=== PATIENT | female | born 1935 | race Caucasian/White ===

== ENCOUNTER 2019-08-24 18:32 | Emergency (ER) | payer OTHER ==
[~2019-08-24] VITALS: Ht 142.2 cm; Wt 57.6 kg
[~2019-08-24 18:32] MED LIST: ANTIVERT25 M1 PO; JANUVIA100 MG PO; NEURONTIN300 MG PO; PRILOSEC20 MG PO; PROCARDIA90 MG/BLIS PO
[2019-08-24] MEDS ORDERED: ENALAPRIL MALEAT5 MG (18:43)
[2019-08-24] MEDS ORDERED: ECOTRIN81 MG (18:44)
== END 2019-08-25 00:39 | disposition home or self-care (01) ==
LOC: ER 18:32
DX: N39.0 Urinary tract infection, site not specified (principal); R10.32 Left lower quadrant pain

== ENCOUNTER 2021-04-03 04:31 | Emergency (ER) | payer OTHER ==
[~2021-04-03] VITALS: Ht 129.5 cm; Wt 55.8 kg
[~2021-04-03 04:31] MED LIST changes: +ECOTRIN81 MG; +ENALAPRIL MALEAT5 MG
[2021-04-03] MEDS ORDERED: LANTUS SOL100 UNIT/1 (04:47)
[2021-04-03] MEDS ORDERED: VITAMIN C500 M6 (04:48)
[2021-04-03] MEDS ORDERED: SIMVASTATIN5 MG (04:48)
[2021-04-03] MEDS ORDERED: VITAMIN D310 MC4 (04:49)
== END 2021-04-03 11:15 | disposition home or self-care (01) ==
LOC: ER 04:31
DX: I16.0 Hypertensive urgency (principal); I10 Essential (primary) hypertension; R07.89 Other chest pain